=== PATIENT | female | born 1990 | race Caucasian/White ===

== ENCOUNTER 2021-10-05 22:59 | Outpatient (CLI) | payer BC, OTHER ==
[2021-10-06 01:26] LABS: HEMOGLOBIN 12.4 gm/dl (12.3-15.3); RED BLOOD COUNT 4.17 M/UL (4.00-5.10)
[2021-10-06 01:45] LABS: BUN/CREATININE RATIO 15 (0-10)
[2021-10-08] MEDS ORDERED: XYZAL5 MG PO (17:46)
[2021-10-08] MEDS ORDERED: LEVOTHYROXINE50 MC1 PO (17:46)
[2021-10-08] MEDS ORDERED: PRENATAL VITAM1 EAC8 PO (17:47)
[2021-10-09] MEDS ORDERED: PERCOCET 5/325 T1 EA PO (22:30)
[2021-10-09] MEDS ORDERED: HEMOCYTE324 MG PO (22:30)
[2021-10-09] MEDS ORDERED: IBUPROFEN800 MG PO (22:30)
[2021-10-09] MEDS ORDERED: COLACE100 MG PO (22:30)
== END 2021-10-06 09:27 | disposition home or self-care (01) ==
LOC: GENOP 22:59
PROVIDERS: Obstetrics & Gynecology
DX: O13.3 Gestational [pregnancy-induced] hypertension without significant proteinuria, third trimester (principal); O99.213 Obesity complicating pregnancy, third trimester; E66.9 Obesity, unspecified; O99.283 Endocrine, nutritional and metabolic diseases complicating pregnancy, third trimester; E03.9 Hypothyroidism, unspecified; Z3A.37 37 weeks gestation of pregnancy
CPT/HCPCS: 36415; 80053; 81001; 82570; 84156; 85025; G0463